=== PATIENT | female | born 1965 | race Caucasian/White ===

== ENCOUNTER → 2018-02-25 | Outpatient (CLI) | payer OTHER | END | disposition home or self-care (01) | LOC: PCVCIMAG 15:30 | DX: R00.2 Palpitations (principal); R06.00 Dyspnea, unspecified; R00.0 Tachycardia, unspecified | CPT/HCPCS: 93325; 93351 ==

== ENCOUNTER → 2019-08-30 | Outpatient (CLI) | payer OTHER ==
--- NOTE | 2019-08-30 16:12 | PCVCIMAG ---
APPROVED REPORT Study performed: 08/30/2019 14:49:46 EXAM: Comprehensive 2D, Doppler, and color-flow Echocardiogram Patient Location: Echo lab Status: routine BSA: 2.05 HR: 97 bpmBP: 130/90 mmHg Rhythm: Sinus Tachycardia Other Information Study Quality: Adequate Indications Dyspnea Palpitations edema 2D Dimensions IVSd: 10.18 (7-11mm) LVDd: 47.37 mm PWd: 9.51 (7-11mm)Ascending Ao: 40.45 (22-36mm) LVDs: 36.27 (25-40mm) Left Atrium: 38.59 (27-40mm) Aortic Root: 36.86 mm LV Single Plane 4CH: 50.66 % LV Single Plane 2CH: 63.39 % Biplane EF: 57.4 % Volumes Left Atrial Volume (Systole) Single Plane 4CH: 59.09 mLSingle Plane 2CH: 51.64 mL LA ESV Index: 28.00 mL/m2 Aortic Valve AoV Peak Caleb.: 1.66 m/s AO Peak Gr.: 11.00 mmHgLVOT Max P.83 mmHg LVOT Max V: 1.10 m/s Mitral Valve E/A Ratio: 0.7 MV Decel. Time: 277.36 ms MV E Max Caleb.: 0.66 m/s MV A Caleb.: 0.89 m/s IVRT: 103.81 ms Pulmonary Valve PV Peak Caleb.: 0.85 m/sPV Peak Gr.: 2.92 mmHg Pulmonary Vein P Vein S: 0.40 m/sP Vein A: 0.40 m/s P Vein D: 0.58 m/sP Vein A Dur.: 128.0 msec P Vein S/D Ratio: 0.69 Tricuspid Valve TR Peak Caleb.: 2.79 m/s TR Peak Gr.: 31.14 mmHg Left Ventricle The left ventricle is normal size. There is normal LV segmental wall motion. There is normal left ventricular wall thickness. Left ventricular systolic function is normal. The left ventricular ejection fraction is within the normal range. LVEF is 55%. Grade I - abnormal relaxation pattern. Right Ventricle The right ventricle is normal size. The right ventricular systolic function is normal. Atria The left atrium size is normal. The right atrium size is normal. Aortic Valve The aortic valve is normal in structure. Trace aortic regurgitation. There is no aortic valvular stenosis. Mitral Valve The mitral valve is normal in structure. Mild mitral regurgitation. No evidence of mitral valve stenosis. Tricuspid Valve The tricuspid valve is normal in structure. Mild tricuspid regurgitation with PAP of 38 mmHg. Pulmonic Valve The pulmonary valve is normal in structure. Trace pulmonic regurgitation. Great Vessels The aortic root is normal in size. The ascending aorta is mildly dilated to 4.1 cm. IVC is normal in size and collapses >50% with inspiration. Pericardium There is no pericardial effusion. There is no pleural effusion. <Conclusion> The left ventricle is normal size. LVEF is 55%. Grade I - abnormal relaxation pattern. The right ventricle is normal size. The left atrium size is normal. Trace aortic regurgitation. Mild mitral regurgitation. Mild tricuspid regurgitation with PAP of 38 mmHg. The aortic root is normal in size. The ascending aorta is mildly dilated to 4.1 cm. There is no pericardial effusion.
== END | disposition home or self-care (01) ==
LOC: PCVCIMAG 14:57
PROVIDERS: ATTEND Internal Medicine Cardiovascular Disease
DX: I08.1 Rheumatic disorders of both mitral and tricuspid valves (principal); R00.2 Palpitations; R06.09 Other forms of dyspnea; R60.0 Localized edema
CPT/HCPCS: 93017; 93306